=== PATIENT | male | born 1960 | race Caucasian/White ===

== ENCOUNTER 2022-03-19 04:25 | Emergency (ER) | payer OTHER ==
[2022-03-19 04:41] VITALS: BP 138/85; PULSE 100; RESP 17; TEMP 100.8; BMI 30.7
[2022-03-19] MEDS ORDERED: ACETAMINOPHEN 500 MG TABLET (FP) PO ONE (04:54)
[2022-03-19] MEDS ORDERED: LIDOCAINE VISCOUS 2% ORAL/TOP 15 ML UNIT-DOSE CUP MM ONE (04:54)
[2022-03-19] MEDS ORDERED: LIDOCAINE VISCOUS 2% ORAL/TOP 15 ML UNIT-DOSE CUP ONE (05:05)
[2022-03-19] MEDS ORDERED: ACETAMINOPHEN 325 MG TABLET (FP) ONE (05:05)
[2022-03-19 05:30] LABS: THROAT:GRP A STREP NOT DETECTED (NOTDETECTED)
== END 2022-03-19 06:16 | disposition home or self-care (01) ==
LOC: JER 04:25
DX: U07.1 COVID-19 (principal); J02.9 Acute pharyngitis, unspecified
CPT/HCPCS: 0241U-QW; 82962; 87651; 93005; 93010; 99284-25